=== PATIENT | female | born 1970 | race Caucasian/White ===

== ENCOUNTER 2017-04-23 11:53 | Emergency (ER) | payer MEDICAID ==
--- NOTE | 2017-04-23 13:24 | Emergency Department Report ---
Chief Complaint: Neck Pain/Injury Stated Complaint: LEFT NECK AND SHOULDER PAIN Time Seen by Provider: 04/23/17 13:20 - HPI History of Present Illness: P Tc/o L neck, shoulder and chest pain. PT states her symptoms started after lifting garbage bag. PT states her pain is worse with movement. - ROS Review of Systems: + neck pain + shoulder pain + chest pain - Exam Physical Exam: decrease rom to L shoulder due to pain pt crying in triage MSE screening note: Focused history and physical exam performed. Due to findings the following was ordered: ekg, labs, xr ED Disposition for MSE Condition: Stable
[2017-04-23 13:28] VITALS: BP 140/99
[2017-04-23 14:01] LABS: Basophils % (Auto) 0.3 % (0.0-1.8); Eosinophils % (Auto) 0.2 % (0.0-4.3); Hematocrit 40.9 % (30.3-42.9); Hemoglobin 14.2 gm/dl (10.1-14.3); Mean Corpuscular HGB Conc 35 % (30-34); Mean Corpuscular Hemoglobin 31 pg (28-32); Mean Corpuscular Volume 89 fl (79-97); Platelet Count 336 K/mm3 (140-440); Red Blood Count 4.61 M/mm3 (3.65-5.03); Red Cell Distribution Width 13.5 % (13.2-15.2); White Blood Count 15.2 K/mm3 (4.5-11.0)
--- NOTE | 2017-04-23 14:09 | XRay Report ---
ROUTINE CHEST, TWO VIEWS: HISTORY: chest pain. The trachea, heart, mediastinal contour, lung pro and bony thorax are unremarkable. IMPRESSION: Unremarkable chest x-ray.
[2017-04-23 14:24] LABS: Alanine Aminotransferase 14 units/L (7-56); Albumin 4.4 g/dL (3.9-5); Albumin/Globulin Ratio 1.1 %; Alkaline Phosphatase 84 units/L (35-129); Anion Gap 23 mmol/L; Blood Urea Nitrogen 9 mg/dL (7-17); Calcium 9.2 mg/dL (8.4-10.2); Carbon Dioxide 21 mmol/L (22-30); Glucose 146 mg/dL (65-100); Potassium 3.7 mmol/L (3.6-5.0); Sodium 138 mmol/L (137-145); Total Protein 8.4 g/dL (6.3-8.2)
== END 2017-04-23 19:58 | disposition left against medical advice (07) ==
LOC: ED 11:53
DX: M54.2 Cervicalgia (principal); M25.512 Pain in left shoulder; Z53.21 Procedure and treatment not carried out due to patient leaving prior to being seen by health care provider
CPT/HCPCS: 36415; 71020; 80053; 84484; 85025; 85610; 85730; 93005; 93010